=== PATIENT | male | born 1950 | race Caucasian/White ===

== ENCOUNTER 2020-06-09 08:00 | Day surgery (SDC) | payer OTHER ==
[~2020-06-09] VITALS: Ht 182.9 cm; Wt 112.0 kg
[~2020-06-09 08:00] MED LIST: AMLODIPINE BESY10 MG PO; ASPIRIN EC81 MG PO; ATORVASTATIN CA40 MG PO; CHLORTHALIDONE25 MG PO; CIPROFLOXACIN500 MG PO; FLOMAX0.4 MG PO; GLIPIZIDE XL5 MG PO; GLUCOPHAGE500 MG PO; LISINOPRIL20 MG PO; OMEPRAZOLE20 MG PO; SIMVASTATIN20 MG PO; TERBINAFINE15 G1 TOP; TRAMADOL HCL50 MG PO; VENTOLIN HFA18 GM INH
[2020-06-09] MEDS ORDERED: KEPPRA250 MG PO (08:17)
--- NOTE | 2020-06-09 09:00 | NUR ---
[id number] PT ARRIVED VIA WHEELCHAIR ACCOMPANIED BY TWO GUARDS AND PLACED IN RM 8. INTAKE PROCESS COMPLETED. PT RESTING IN LOCKED AND LOWERED BED, 2 GUARDS AT THE BEDSIDE, CALL LIGHT WITHIN REACH. NO FURTHER REQUESTS AT THIS TIME.
--- NOTE | 2020-06-09 11:30 | NUR ---
06/09/20 1130 Jayde Sims 1045 PT ARRIVED IN PACU SLEEPY WITH 2 TRANSPORT GUARDS AT BEDSIDE. 1100 RESTING. REU. 1115 SITTING AT SIDE OF BED SIPPING ON WATER. DC INSTRUCTIONS GIVEN. ALL QUESTIONS ANSWERED. 1125 LEFT VIA W/C WITH GUARDS.
--- NOTE | 2020-06-10 07:39 | OR ---
[facility] [place] [facility] [address], [place] [address] Signed DATE OF OPERATION: 06/09/2020 SURGEON: Raine Webber MD PREOPERATIVE DIAGNOSES: 1. Weight loss. 2. Hiatal hernia. 3. Acid reflux. 4. History of peptic ulcer disease. 5. Epigastric abdominal pain. 6. Anorexia. 7. Esophageal dysphagia. 8. Sister with history of colonic polyps in her 60s. POSTOPERATIVE DIAGNOSES: 1. Small hiatal hernia. 2. Mild gastroduodenitis. 3. Small pyloric polyp/duodenal ulcer. 4. Minimal to moderate internal hemorrhoids. 5. Prostate nodule. PROCEDURES: 1. EGD with CLOtest and biopsies of the pyloric bulb and the antrum. 2. Colonoscopy without biopsy. ESTIMATED BLOOD LOSS: None. INDICATIONS: Trent is a 70-year-old gentleman from our [facility]. He was asked to see me for upper and lower endoscopy with respect to the above issues. He said he has a long history of his hiatal hernia with the acid reflux. He has had a duodenal ulcer in the past. He is talking about epigastric and midsternal chest pain. He thinks food is getting caught and coming back up. He has been anorexic and losing weight. He has been on omeprazole 20 mg each day. He describes upper and lower endoscopy while living in the [facility]. He also mentioned his sister had colonic polyps in her early 60s. He told me his last colonoscopy was negative back in 2011 with [facility] in [place], [place]. He said he has no lower GI complaints. No colon cancer in the family to his knowledge. I had reminded him of both upper and lower endoscopy. We reviewed the risks including, but not limited to gas bloating, crampy Electronically Signed By: RAINE WEBBER MD 06/10/20 0739 PATIENT NAME: TRENT GARLAND OPERATIVE REPORT DATE OF : 54 REPORT #: [id number] PHYSICIAN: RAINE WEBBER MD PCP: JOJO SAMANO REPORT IS CONFIDENTIAL AND NOT TO BE RELEASED WITHOUT AUTHORIZATION [facility] [address] [place] [id number] Signed abdominal pain, bleeding, perforation requiring surgery, and missed diagnosis. He also understands the need for IV conscious sedation. He had expressed understanding and wished to proceed. DESCRIPTION OF PROCEDURE: Trent was taken into our endoscopy suite and placed in a supine semi-recumbent position. The posterior oropharynx was anesthetized with lidocaine spray. A bite block was utilized for the case. He was given a total of 10 mg of Versed and 200 mcg of fentanyl to cover the case. He was given Ancef for his bilateral knee replacements. The adult gastroscope was introduced and advanced out into the third portion of the duodenum without difficulty. The duodenum was unremarkable. In the pyloric bulb, he had a small ulcer and it is not bleeding. A little bit of irritation in the pyloric bulb as well as throughout the stomach. Consequently, he does have mild gastroduodenitis. We took a biopsy of the pyloric bulb as well as the antrum for pathologic review. In addition, biopsy came out of the antrum for CLOtest. Although, the barium swallow did not show any issues including a stricture or hiatal hernia or acid reflux. We do see a small hiatal hernia upon retroflexion of the scope. The scope was withdrawn up to the area of GE junction, which was compliant without stricture. There was minimal disruption to the Z-line. There was no Velez's mucosa, no distal esophagitis. No Schatzki's ring. The middle and upper esophagus were unremarkable. After this, the gas was suctioned out and the gastroscope removed. Trent tolerated this upper endoscopy quite well. Trent was rotated into the left lateral decubitus position. He was maintained on IV sedation with the Versed and fentanyl. A digital rectal exam was performed and he does have a fairly prominent prostate nodule. No evidence of the external hemorrhoids. The adult colonoscope was introduced and advanced all around into the cecum under direct visualization of camera without difficulty. His prep was quite good. We could easily see the appendiceal orifice and the ileocecal valve. The scope was slowly withdrawn. He had no pathology throughout his entire colon or rectum. Specifically, no colonic polyps and no diverticulosis. Once in the rectum, the scope had been retroflexed, he does have minimal to moderate internal hemorrhoids. After this, the gas was suctioned out and the colonoscope removed. Trent tolerated the procedure quite well. RECOMMENDATIONS: I will see Trent back in the office in the next 15-45 days. However, because of the COVID virus, he is more than welcome to see his primary care provider at the [facility] as well. In addition, he probably needs the prostate nodule evaluated. Electronically Signed By: RAINE WEBBER MD 06/10/20 0739 PATIENT NAME: TRENT GARLAND OPERATIVE REPORT DATE OF : 54 REPORT #: [id number] PHYSICIAN: RAINE WEBBER MD PCP: SAMANO,JOJO R CASE FINISHER REPORT IS CONFIDENTIAL AND NOT TO BE RELEASED WITHOUT AUTHORIZATION [facility] [address] [place], [place] [address] Signed Raine Webber MD ALB/MODL /[id number] cc: MD Raine Peck MD Copies: FIDE LEMON MD, ANDREW L MD ~ Electronically Signed By: RAINE WEBBER MD 06/10/20 0739 PATIENT NAME: TRENT GARLAND OPERATIVE REPORT DATE OF : 54 REPORT #: [id number] PHYSICIAN: RAINE WEBBER MD PCP: JOJO SAMANO CASE FINISHER REPORT IS CONFIDENTIAL AND NOT TO BE RELEASED WITHOUT AUTHORIZATION
--- NOTE | 2020-06-10 17:52 | PATH ---
[facility] [address] [facility] [place] [address] Signed SPECIMEN(S): A DUODENUM BULB SPECIMEN(S): B ANTRUM SPECIMEN SOURCE: A. DUODENUM BULB B. ANTRUM CLINICAL HISTORY: H/H; GERD; dysphagia; family history of colon polyps/duodenal ulcer; gastroduodenitis; internal hemorrhoids. MICROSCOPIC DESCRIPTION: Histologic sections of all submitted blocks are examined by light microscopy. These findings, together with the gross examination, support the pathologic diagnosis. FINAL PATHOLOGIC DIAGNOSIS: A. Duodenum, bulb, biopsy: - Duodenal mucosa with peptic injury. B. Stomach, antrum, biopsy: - Gastric antral mucosa with reactive gastropathy. - Negative for Helicobacter pylori with HE stains. BRP:cml:C2NR GROSS DESCRIPTION: Two specimens are received in two containers, labeled "DK." A. The specimen, labeled "DK, 1," and designated on the requisition "duodenum bulb," is received in formalin and consists of one morales soft tissue fragment that measures 0.3 cm in greatest dimension. The specimen is entirely submitted in cassette (A1). B. The specimen, labeled "DK, 2," and designated on the requisition "antrum," is received in formalin and consists of one morales soft tissue fragment that measures 0.3 cm in greatest dimension. The specimen is entirely submitted in cassette (B1). AT (under the direct supervision of a pathologist) The Gross Description was prepared using a voice recognition system. The report was reviewed for accuracy; however, sound-alike word errors, addition and/or deletions may occur. If there is any question about this report, please contact Client Services. PERFORMING LABORATORY: The technical component was performed by [facility], Yossi Espinola nena Jaime, PATIENT NAME: TRENT GARLAND PATHOLOGY DATE OF : 54 REPORT #: [id number] PHYSICIAN: MARIOLA MARTINEZ PCP: JOJO SAMANO REPORT IS CONFIDENTIAL AND NOT TO BE RELEASED WITHOUT AUTHORIZATION [facility] [address], [place] [address] [place] [address] (Acid Bleacher: Nicole Kee MD; CLIA# [id number]). Professional interpretation was performed by [facility], [facility], [address] [place] [id number] (CLIA# [id number]). Diagnostician: Baron Reyes MD Pathologist Electronically Signed 06/10/2020 Copies: ~ PATIENT NAME: TRENT GARLAND PATHOLOGY DATE OF : 54 REPORT #: [id number] PHYSICIAN: MARIOLA MARTINEZ PCP: JOJO SAMANO REPORT IS CONFIDENTIAL AND NOT TO BE RELEASED WITHOUT AUTHORIZATION
== END 2020-06-09 11:25 | disposition home or self-care (01) ==
LOC: DS 08:00 → OPS 08:00
PROVIDERS: ATTEND Colon & Rectal Surgery
PROC: 0DJD8ZZ Inspection of Lower Intestinal Tract, Via Natural or Artificial Opening Endoscopic (ICD-10-PCS; 2020-06-09)
PROC: 0DB98ZX Excision of Duodenum, Via Natural or Artificial Opening Endoscopic, Diagnostic (ICD-10-PCS; principal; 2020-06-09 09:00)
PROC: 0DB78ZX Excision of Stomach, Pylorus, Via Natural or Artificial Opening Endoscopic, Diagnostic (ICD-10-PCS; 2020-06-09 09:00)
DX: K64.8 Other hemorrhoids (principal); N40.2 Nodular prostate without lower urinary tract symptoms; S36.400A Unspecified injury of duodenum, initial encounter; K31.9 Disease of stomach and duodenum, unspecified; K21.9 Gastro-esophageal reflux disease without esophagitis; K44.9 Diaphragmatic hernia without obstruction or gangrene; J44.9 Chronic obstructive pulmonary disease, unspecified; Z86.010 Personal history of colon polyps; Z83.71 Family history of colonic polyps; Z79.899 Other long term (current) drug therapy; X58.XXXA Exposure to other specified factors, initial encounter; Z79.82 Long term (current) use of aspirin; Z79.84 Long term (current) use of oral hypoglycemic drugs; Z88.1 Allergy status to other antibiotic agents; Z68.33 Body mass index [BMI] 33.0-33.9, adult
CPT/HCPCS: 86677; 99153; G0500; J0690; J1644; J2250; J3010; J7121